=== PATIENT | male | born 1940 | race Caucasian/White ===

== ENCOUNTER → 2016-12-26 | Outpatient (CLI) | payer OTHER | LOC: GIMAGING 16:19 | PROVIDERS: ATTEND Nurse Practitioner Family | DX: M50.30 Other cervical disc degeneration, unspecified cervical region (principal); M47.892 Other spondylosis, cervical region | CPT/HCPCS: 72050-PO ==

== ENCOUNTER 2017-02-27 19:29 | Observation (INO) | payer OTHER ==
--- NOTE | 2017-02-27 21:04 | EDPHY ---
H & P Time Seen by Provider: 02/27/17 20:57 HPI/ROS: Chief complaint. Fever HPI. 77-year-old male fever for 4 days. Seen at urgent care 4 days ago and treated symptomatically. Patient has had fever to 104 degrees. He has been diaphoretic and sweating. He has joint pains. His cough and shortness of breath. Also mid abdominal pain. Denies urinary frequency or dysuria but dark urine. No rash. He lives in an area [facility] where there have been West Nile virus mosquito traps and he says there has been a lot of mosquitos around was unaware being bitten. Also an area where there has been some [place] dog dust. Otherwise no out of the country travel. ROS Constitutional. Fever and chills Eyes. no problems with vision ENT. no sore throat, no nasal drainage Cardiovascular. no chest pain Respiratory. Cough, shortness of breath Abdominal. no abdominal pain, no nausea/vomiting, no diarrhea . no problems urinating MS. no calf pain/swelling, no neck/back pain, no joint pain Skin. no rash Lymph. no swollen glands Neuro. no headache, no dizziness, no difficulty walking or with speech Past Medical/Surgical History: Past medical history is significant for prostate cancer, hypertension, gout Social History: , nonsmoker, no alcohol Smoking Status: Never smoked Physical Exam: General Appearance: Alert well-developed male moderate distress vital signs show temp 37.2degrees, heart rate 130, O2 saturation 1% Eyes: Pupils equal and round no pallor or injection. ENT, Mouth: Mucous membranes are moist. Respiratory: No retractions. Rales right lower lung base Cardiovascular: Regular rate and rhythm. Gastrointestinal: Abdomen is soft and nontender, no masses, bowel sounds normal. Neurological: Awake and alert, sensory and motor exams grossly normal. Skin: Warm and dry, no rashes. Musculoskeletal: Neck is supple nontender. Extremities symmetrical, full range of motion. Psychiatric: Patient is oriented X 3, there is no agitation. Constitutional: Initial Vital Signs Temperature (C) 37.2 C 02/27/17 19:33 Heart Rate 86 02/27/17 19:33 Respiratory Rate 18 02/27/17 19:33 Blood Pressure 137/80 H 02/27/17 19:33 O2 Sat (%) 91 L 02/27/17 19:33 O2 Delivery Mode Room Air Allergies/Adverse Reactions: No Known Allergies Allergy (Verified 02/27/17 19:38) Home Medications: Medication Instructions Recorded Allopurinol [Allopurinol] 300 mg PO DAILY 02/27/17 Beta-Carotene(A) W-C & E/Min 1 tab PO DAILY 02/27/17 [Ocuvite] Cholecalciferol Vit D3 [Vitamin D3 2,000 units PO DAILY 02/27/17 (*)] Losartan Potassium [Cozaar 50 mg 50 mg PO DAILY 02/27/17 (*)] Multivitamins [Multivitamin (*)] 1 each PO DAILY 02/27/17 Solomon-3 Fatty Acids [Fish Oil 1000 2,000 mg PO DAILY 02/27/17 mg (*)] amLODIPine BESYLATE [Amlodipine 10 mg PO DAILY 02/27/17 Besylate] Medical Decision Making - Diagnostics EKG Interpretation: EKG interpreted by me shows atrial fibrillation. Is normal axis. QRS is normal there is no significant ST elevation or depression. Ventricular response is 133 Imaging Results: Imaging Impressions Chest X-Ray 02/27/17 21:24 Impression: Right posteromedial lower lobe infiltrate. Clinical correlation and follow-up are suggested to assure resolution. Procedures: IV normal saline. Septic workup ED Course/Re-evaluation: Re-evaluation patient is stable. The patient, his , and I discussed treatment plan including bleeding recommendation for admission. They expressed understanding and agreement IV Rocephin and azithromycin I consulted and discussed the case with Dr. Rodriguez, hospitalist who agrees to the admission Current ventricular response is 104 Differential Diagnosis: Patient has febrile illness. He has right lower lobe pneumonia that is community-acquired. He is in atrial fibrillation. No evidence for sepsis - Data Points Laboratory Results: Laboratory Results 02/27/17 20:12 02/27/17 20:12 02/27/17 02/27/17 02/27/17 21:36 20:12 20:12 WBC RBC Hgb Hct MCV MCH MCHC RDW Plt Count MPV Neut % (Auto) Lymph % (Auto) [place] % (Auto) Eos % (Auto) Baso % (Auto) Nucleat RBC Rel Count Absolute Neuts (auto) Absolute Lymphs (auto) Absolute Monos (auto) Absolute Eos (auto) Absolute Basos (auto) Absolute Nucleated RBC Immature Gran % Immature Gran # PT 12.9 SEC SEC (12.0-15.0) INR 0.98 (0.83-1.16) APTT 31.0 SEC SEC (23.0-38.0) VBG Lactic Acid 1.3 mmol/L mmol/L (0.7-2.1) Sodium 129 mEq/L L mEq/L (134-144) Potassium 3.8 mEq/L mEq/L (3.5-5.2) Chloride 94 mEq/L L mEq/L (97-110) Carbon Dioxide 23 mEq/l mEq/l (22-31) Anion Gap 12 mEq/L mEq/L (8-16) BUN 9 mg/dL mg/dL (7-23) Creatinine 1.0 mg/dL mg/dL (0.7-1.3) Estimated GFR > 60 Glucose 203 mg/dL H mg/dL (70-100) Calcium 8.6 mg/dL mg/dL (8.5-10.4) Total Bilirubin 1.9 mg/dL H mg/dL (0.1-1.4) Urine Color Urine Appearance Urine pH Ur Specific [place] Urine Protein Urine Ketones Urine Blood Urine Nitrate Urine Bilirubin Urine Urobilinogen Ur Leukocyte Esterase Urine RBC Urine WBC Ur Epithelial Cells Urine Mucus Urine Glucose 02/27/17 02/27/17 20:12 20:05 WBC 12.81 10^3/uL H 10^3/uL (3.80-9.50) RBC 4.11 10^6/uL L 10^6/uL (4.40-6.38) Hgb 13.8 g/dL g/dL (13.7-17.5) Hct 39.2 % L % (40.0-51.0) MCV 95.4 fL fL (81.5-99.8) MCH 33.6 pg pg (27.9-34.1) MCHC 35.2 g/dL g/dL (32.4-36.7) RDW 12.1 % % (11.5-15.2) Plt Count 190 10^3/uL 10^3/uL (150-400) MPV 11.1 fL fL (8.7-11.7) Neut % (Auto) 85.6 % H % (39.3-74.2) Lymph % (Auto) 4.7 % L % (15.0-45.0) [place] % (Auto) 9.1 % % (4.5-13.0) Eos % (Auto) 0.0 % L % (0.6-7.6) Baso % (Auto) 0.3 % % (0.3-1.7) Nucleat RBC Rel Count 0.0 % % (0.0-0.2) Absolute Neuts (auto) 10.96 10^3/uL H 10^3/uL (1.70-6.50) Absolute Lymphs (auto) 0.60 10^3/uL L 10^3/uL (1.00-3.00) Absolute Monos (auto) 1.17 10^3/uL H 10^3/uL (0.30-0.80) Absolute Eos (auto) 0.00 10^3/uL L 10^3/uL (0.03-0.40) Absolute Basos (auto) 0.04 10^3/uL 10^3/uL (0.02-0.10) Absolute Nucleated RBC 0.00 10^3/uL 10^3/uL (0-0.01) Immature Gran % 0.3 % % (0.0-1.1) Immature Gran # 0.04 10^3/uL 10^3/uL (0.00-0.10) PT INR APTT VBG Lactic Acid Sodium Potassium Chloride Carbon Dioxide Anion Gap BUN Creatinine Estimated GFR Glucose Calcium Total Bilirubin Urine Color PALE YELLOW Urine Appearance CLEAR Urine pH 7.0 (5.0-7.5) Ur Specific [place] 1.002 (1.002-1.030) Urine Protein NEGATIVE (NEGATIVE) Urine Ketones NEGATIVE (NEGATIVE) Urine Blood 1+ H (NEGATIVE) Urine Nitrate NEGATIVE (NEGATIVE) Urine Bilirubin NEGATIVE (NEGATIVE) Urine Urobilinogen NEGATIVE EU EU (0.2-1.0) Ur Leukocyte Esterase NEGATIVE (NEGATIVE) Urine RBC NONE SEEN /hpf /hpf (0-3) Urine WBC NONE SEEN /hpf /hpf (0-3) Ur Epithelial Cells NONE SEEN /lpf /lpf (NONE-1+) Urine Mucus TRACE /lpf /lpf (NONE-1+) Urine Glucose NEGATIVE (NEGATIVE) Medications Given: Discontinued Medications Ceftriaxone Sodium/Dextrose (Rocephin 1 Gm (Premix)) 50 mls @ 100 mls/hr IV EDNOW ONE PRN Reason: Protocol Stop: 02/27/17 22:44 Last Admin: 02/27/17 22:39 Dose: 50 mls Departure - Departure Disposition: [facility] Acute Clinical Impression: Atrial fibrillation by electrocardiogram Pneumonia Qualifiers: Pneumonia type: due to unspecified organism Laterality: right Lung location: lower lobe of lung Qualified Code(s): J18.1 - Lobar pneumonia, unspecified organism Condition: Fair
[2017-02-27 21:33] LABS: COLOR PALE YELLOW; LEUKOCYTE ESTERASE,URINE NEGATIVE (NEGATIVE); NITRITE,URINE NEGATIVE (NEGATIVE)
[2017-02-27 21:33] LABS: % IMMATURE GRANULYOCYTES 0.3 % (0.0-1.1); ABSOLUTE IMMATURE GRANULOCYTES 0.04 10^3/uL (0.00-0.10); ADD DIFF? NO; ADD MORPH? NO; ADD SCAN? NO; ATYPICAL LYMPHOCYTE FLAG 0 (0-99); FRAGMENT RBC FLAG 0 (0-99); HEMATOCRIT 39.2 % (40.0-51.0); HEMOGLOBIN 13.8 g/dL (13.7-17.5); LEFT SHIFT FLG 50 (0-99); LIPEMIA HEMOLYSIS FLAG 90 (0-99); MEAN CELL HEMOGLOBIN 33.6 pg (27.9-34.1); MEAN CELL HEMOGLOBIN CONCENTR. 35.2 g/dL (32.4-36.7); MEAN CELL VOLUME 95.4 fL (81.5-99.8); MEAN PLATELET VOLUME 11.1 fL (8.7-11.7); PLATELET CLUMPS FLAG 0 (0-99); PLATELET COUNT 190 10^3/uL (150-400); RED BLOOD CELL COUNT 4.11 10^6/uL (4.40-6.38); RED CELL DISTRIBUTION WIDTH 12.1 % (11.5-15.2)
[2017-02-27 21:37] LABS: MUCUS TRACE /lpf (NONE-1+)
[2017-02-27 21:38] LABS: RBC,URINE NONE SEEN /hpf (0-3); WBC,URINE NONE SEEN /hpf (0-3)
[2017-02-27 21:42] LABS: INR 0.98 (0.83-1.16); PROTIME(PATIENT) 12.9 SEC (12.0-15.0)
[2017-02-27 21:44] LABS: ANION GAP 12 mEq/L (8-16); BILIRUBIN,TOTAL 1.9 mg/dL (0.1-1.4); CALCIUM 8.6 mg/dL (8.5-10.4); CARBON DIOXIDE 23 mEq/l (22-31); CHLORIDE 94 mEq/L (97-110); GLOMERULAR FILTRATION RATE > 60; GLUCOSE 203 mg/dL (70-100); POTASSIUM 3.8 mEq/L (3.5-5.2); SODIUM 129 mEq/L (134-144)
--- NOTE | 2017-02-27 21:57 | CPEKG ---
Heart Rate: 135 RR Interval: 444 QRSD Interval: 94 QT Interval: 324 QTC Interval: 486 QRS Commack: 47 T Wave Commack: 14 EKG Severity - ABNORMAL ECG - EKG Impression: ATRIAL FIBRILLATION EKG Impression: BORDERLINE PROLONGED QT INTERVAL Electronically Signed By: Dameon Cordero 27-Feb-2017 23:39:16
[2017-02-27] MEDS ORDERED: AZITHROMYCIN IV 500 MG in D5W 250 ML IV ONE (22:15)
[2017-02-27] MEDS ORDERED: DILTIAZEM 25 MG/5 ML VIAL IVP SCH ×2 (23:15→23:30)
[2017-02-27] MEDS ORDERED: DILTIAZEM 25 MG/5 ML VIAL IVP ONE (23:18)
[2017-02-27] MEDS ORDERED: HYDROmorphONE/DILAUDID 1 MG/ML SYR IVP PRN (23:25)
[2017-02-27] MEDS ORDERED: oxyCODONE IR 5 MG TAB PO PRN (23:25)
[2017-02-27] MEDS ORDERED: PROMETHAZINE HCL 25 MG/ML INJ IVP PRN (23:25)
[2017-02-27] MEDS ORDERED: ONDANSETRON 4 MG/2 ML VIAL IVP PRN (23:25)
[2017-02-27] MEDS ORDERED: KETOROLAC 30 MG/1 ML SDV IVP PRN (23:25)
[2017-02-27] MEDS ORDERED: ACETAMINOPHEN 325 MG TAB PO PRN (23:25)
[2017-02-27] MEDS ORDERED: DILTIAZEM 125 MG in D5W 125 ML IV SCH (23:30)
[2017-02-27] MEDS ORDERED: NS 1,000 ML IV SCH (23:30)
--- NOTE | 2017-02-28 00:45 | GHP ---
[f rep st] HISTORY AND PHYSICAL DATE OF ADMISSION: 02/27/2017 CHIEF COMPLAINT: Fever. HISTORY: The patient is a 77-year-old male, who has been having severe fever at home, up to 104 for the last 4 days. He has been diaphoretic, and last night, had such severe night sweats, that he so aked through all his bed sheets. He has had a new cough with productive brown sputum and shortness of breath. He also complains of extreme joint pain felt most in his bilateral shoulders and elbows, although there have been no focal changes, such as swelling or warmth at the joints. He has had na usea. He denies any chest pain or palpitations. Upon presentation, he was in normal sinus rhythm and diagnosed with community-acquired pneumonia. Antonietta moore was on a compliance monitor in the emergency room. Subsequently, went into rapid AFib, heart rate up to 150-160, completely asymptomatic. He continues in rapid AFib at this time. PAST MEDICAL HISTORY: 1. Hypertension. 2. Gout. 3. Prostate cancer, status post radical prostatectomy. MEDICATIONS: Please see computer record for full detailed list. ALLERGIES: No known drug allergies. SOCIAL HISTORY: No smoking. Drinks 3 beers per day. Lives with his . REVIEW OF SYSTEMS: Complete review of systems obtained. Review of systems negative regarding const itutional, HEENT, GI, pulmonary, cardiovascular, , hematology, skin, musculoskeletal, endocrine, p sych except for positives as noted in HPI. FAMILY HISTORY: Reviewed, noncontributory to presenting complaint. PHYSICAL EXAMINATION: GENERAL: Well-developed, well-nourished male, in no acute distress. VITAL S IGNS: Temperature is 37.4, pulse 118. I noted his telemetry when I was at bedside to be in a persi stent rapid AFib throughout my visit with him, heart rate up to 150 to 160. Blood pressure 146/98, satting 93% on room air. EYES: Normal conjunctiva. Pupils equal and react light. ENT: Normal ea rs, nose. Hearing intact. Normal lips and teeth. Oropharynx moist. NECK: Trachea midline. No t hyromegaly. Chest normal respiratory effort. LUNGS: Clear to auscultation bilaterally. CARDIOVAS CULAR: Irregularly irregular, tachycardic. No murmur. ABDOMEN: Soft, nontender. No hepatospleno megaly. SKIN: Warm, dry, intact, without rash. MUSCULOSKELETAL: No cyanosis or clubbing. Streng th 5/5 in upper and lower extremities. Both his shoulders and elbows were closely examined. They h ave good range of motion without increased pain. No erythema, warmth, or swelling of the joint. NE UROLOGIC: Cranial nerves intact. Normal sensation to light touch. PSYCHIATRIC: Alert and oriente d x3. Normal affect. Normal judgment. Normal insight. Normal memory. LABORATORY DATA: White count 12.8, hematocrit 39.2, platelets 190. Sodium 129, potassium 3.8, chlo ride 94, bicarb 23, BUN 9, creatinine 1.0, glucose 203. Total bili 1.9. Urinalysis is negative. L actate is 1.9. INR is normal. EKG viewed by me, my personal interpretation is atrial fibrillation with rapid ventricular response. Chest x-ray shows a right lower lobe infiltrate. Case was discussed with Dr. Dameon Cordero. He di agnosed community-acquired pneumonia, started ceftriaxone and azithromycin. ASSESSMENT/PLAN: 1. Right lower lobe pneumonia. This is community acquired. We will continue ceftriaxone and azith romycin. 2. New-onset atrial fibrillation. I suspect he has been having asymptomatic paroxysmal atrial fibr illation more longstanding as he was normal sinus rhythm on presentation and flipped into rapid vent ricular response incidentally on the monitor, without any change in symptoms. Will start him on an IV diltiazem drip and transition it to oral diltiazem in the morning. Will start him on Eliquis. W ill check an echo. 3. Hypertension. I will discontinue his amlodipine as we will be changing his calcium channel bloc ker to diltiazem. This is provided, of course, that his echocardiogram has a normal ejection fracti on. 4. Hyponatremia. I suspect he is hypovolemic. Will hydrate overnight with normal saline and reche ck in the morning. 5. Glucose elevation. I will check a fasting glucose in the morning. Check hemoglobin A1c. 6. Total bilirubin elevation. Will check a full LFT panel in the morning. 7. Code status. Full. 8. Admission status. Will admit to observation as optimistically, he may rapidly improve and be ab le to go home tomorrow. Will reassess tomorrow. 9. Deep vein thrombosis prophylaxis. As discussed above, Eliquis being initiated. /[id number]/MODL
[2017-02-28 04:32] LABS: ADD MORPH? NO; ATYPICAL LYMPHOCYTE FLAG 0 (0-99); FRAGMENT RBC FLAG 0 (0-99); HEMOGLOBIN 12.6 g/dL (13.7-17.5); LIPEMIA HEMOLYSIS FLAG 90 (0-99); MEAN CELL HEMOGLOBIN 33.8 pg (27.9-34.1); MEAN CELL VOLUME 96.5 fL (81.5-99.8); MEAN PLATELET VOLUME 10.8 fL (8.7-11.7); PLATELET CLUMPS FLAG 10 (0-99); PLATELET COUNT 181 10^3/uL (150-400); RED BLOOD CELL COUNT 3.73 10^6/uL (4.40-6.38); RED CELL DISTRIBUTION WIDTH 12.1 % (11.5-15.2)
[2017-02-28 04:33] LABS: ADD DIFF? YES; ADD SCAN? NO; LEFT SHIFT FLG 110 (0-99)
[2017-02-28 05:00] LABS: PLATELET ESTIMATE ADEQUATE (ADEQ)
[2017-02-28 05:02] LABS: ALANINE AMINOTRANSFERASE 29 IU/L (21-72); ALBUMIN 2.7 g/dL (3.5-5.0); ALKALINE PHOSPHATASE 85 IU/L (38-126); ANION GAP 10 mEq/L (8-16); ASPARTATE AMINOTRANSFERASE 16 IU/L (17-59); BILIRUBIN,TOTAL 1.2 mg/dL (0.1-1.4); BILIRUBIN-CONJUGATED 0.4 mg/dL (0.0-0.5); BILIRUBIN-UNCONJUGATED 0.8 mg/dL (0.0-1.1); CALCIUM 7.7 mg/dL (8.5-10.4); CARBON DIOXIDE 23 mEq/l (22-31); CHLORIDE 100 mEq/L (97-110); GLOMERULAR FILTRATION RATE > 60; GLUCOSE 221 mg/dL (70-100); POTASSIUM 3.6 mEq/L (3.5-5.2); SODIUM 133 mEq/L (134-144); TOTAL PROTEIN 4.7 g/dL (6.3-8.2)
[2017-02-28 05:09] LABS: TROPONIN I < 0.012 ng/mL (0.000-0.034)
[2017-02-28] MEDS ORDERED: SIMETHICONE 80 MG TAB CHEW PO PRN (05:32)
[2017-02-28] MEDS ORDERED: AZITHROMYCIN 250 MG TAB PO SCH (09:00)
[2017-02-28] MEDS ORDERED: APIXABAN 5 MG TAB PO SCH (09:00)
[2017-02-28] MEDS ORDERED: ALLOPURINOL 300 MG TAB PO SCH (09:00)
[2017-02-28] MEDS ORDERED: LOSARTAN POTASSIUM 50 MG TAB PO SCH (09:00)
[2017-02-28] MEDS ORDERED: DILTIAZEM CD 120 MG CAP PO SCH (09:00)
[2017-02-28 11:15] VITALS: BP 140/70; PULSE 82; RESP 20; TEMP 98.1
[2017-02-28 11:49] VITALS: O2SAT 86
--- NOTE | 2017-02-28 11:55 | PDHOMEO2F ---
Home Oxygen Face to Face Home Orders: I certify that a physician or a nurse practitioner or physician's entry level administrative assistant has had a [id number] encounter with this patient on the date of this order due to the diagnosis listed, which relates to the primary reason the patient requires home oxygen. Alternative treatments have been tried, or considered, and deemed ineffective. It is anticipated that supplemental oxygen will result in improvement with treatment. Home oxygen qualifying diagnosis: hypoxia Home oxygen secondary diagnosis: pneumonia SpO2 on room air (%): 86 at rest Frequency of home oxygen needed: continuous Home oxygen liters per minute: 2 Home oxygen delivery device: nasal cannula Concentrator: No E-tanks for mobility and back up: Yes If ordering portable O2, is the patient mobile in the home?: No I certify that, based on these findings, the home oxygen is medically necessary for this patient for the following length of time. Length of time home oxygen needed: 1 week
--- NOTE | 2017-02-28 11:58 | HOSPPROG ---
Hospitalist Progress Note Assessment/Plan: #Atrial fibrillation: suspect more chronic. Converted to NSR. DC on Dilt, Eliquis. TTE pending #CAP: change to LQ #Acute hypoxic resp failure: due to CAP #HTN: change Norvasc to Dilt #hypovolemic hyponatremia: improved with IVFs #Diet: regular #DVT ppx: Eliquis #Disp: pending TTE Subjective: no SOB, dizziness or CP Objective: Vital Signs Temp Pulse Resp BP Pulse Ox 36.7 C 82 20 140/70 H 86 L 02/28/17 11:14 02/28/17 11:14 02/28/17 11:14 02/28/17 11:14 02/28/17 11:30 Laboratory Results 02/28/17 04:06 02/28/17 04:06 02/27/17 02/28/17 03/01/17 05:59 05:59 05:59 Intake Total 1400 862 Balance 1400 862 PT 12.9 SEC (12.0-15.0) 02/27/17 20:12 INR 0.98 (0.83-1.16) 02/27/17 20:12 - Physical Exam Constitutional: no apparent distress Eyes: PERRL Ears, Nose, Mouth, Throat: moist mucous membranes Cardiovascular: regular rate and rhythym, no murmur, rub, or gallop, No edema Respiratory: no respiratory distress, other (crackles right mid-lung, base) Gastrointestinal: normoactive bowel sounds, soft, non-tender abdomen Genitourinary: no bladder fullness Skin: warm Musculoskeletal: full muscle strength Neurologic: AAOx3, CN II-XII Intact Psychiatric: interacting appropriately ICD10 Worksheet Patient Problems: Problems Problem Status Onset Atrial fibrillation by electrocardiogram Acute Pneumonia Acute
--- NOTE | 2017-02-28 13:21 | ECHO ---
[id number] + + [address] : : [place] [address] : : [phone] + + Adult Echocardiographic Report + -------+ :Name: SANDY CONTRERAS HStudy Date: 02/28/2017 12:07 PM : : Hospital Admission Number: [id number] Locati on: 214: :: 1940 Gender: Male Height: 69 in : :Age: 77 yrs Race: WH Weight: 165 lb : :Reason For Study: new afib : : BSA: 1.9 meter s2 : :History: No previous : + -------+ MMode/2D Measurements \T\ Calculations IVSd: 0.99 cm LVIDd: 4.5 cm FS: 49.6 % LVOT diam: 2.0 cm LVPWd: 0.91 cm LVIDs: 2.3 cm EDV(Teich): LVOT area: 93.4 ml 3.2 cm2 ESV(Teich): 17.7 ml EF(Teich): 81.1 % LVLd ap4: 7.5 cm SV(MOD-sp4): EDV(MOD-sp4): 54.0 ml 79.0 ml LVLs ap4: 6.1 cm ESV(MOD-sp4): 25.0 ml EF(MOD-sp4): 68.4 % Normal Measurement Values: + + :LVIDd (3.5-5.7cm) IVSd (0.6-1.1cm) LVPWd (0.6-1.1cm) Aortic Root (2.0-3.7cm)Left Atrium (1.5-4.0cm): :LV Vol(d) (76-115ml) LV Vol(s) (29-48ml) Ejec Fraction (50-65%)PV Harsha (0.6- 1.2m/s) TV Harsha (0.4-1.0m/s) : :MV E Harsha (0.8-1.0m/s)MV A Harsha (0.3-1.0m/s)LVOT Harsha (0.7-1.2m/s) Asc Ao Harsha ( 0.9-1.8m/s) : + + Doppler Measurements \T\ Calculations MV E max harsha: MV V2 mean: Ao mean PG: LV V1 max: 81.9 cm/sec 67.7 cm/sec 3.4 mmHg 133.3 cm/sec MV A max harsha: MV mean PG: Ao V2 mean: LV V1 max P.4 cm/sec 2.0 mmHg 88.1 cm/sec 7.1 mmHg MV E/A: 0.96 MV V2 VTI: 31.5 cmAo V2 VTI: 22.6 cm LV V1 mean PG: MV dec time: MVA(VTI): 2.5 cm2 YULISA(I,D): 3.4 cm2 3.8 mmHg 0.25 sec LV V1 mean: 92.3 cm/sec LV V1 VTI: 24.1 cm SV(LVOT): 77.4 ml RAP systole: 10.0 mmHg Left Ventricle The left ventricle is normal in size and function. There is normal left ventricular wall thickness. Ejection Fraction = 65-70%. No regional wall motion abnormalities noted. Right Ventricle The right ventricle is normal in size and function. Atria The left atrial size is normal. Right atrial size is normal. Mitral Valve The mitral valve is normal in structure and function. There is no mitral valve stenosis. There is trace mitral regurgitation. Tricuspid Valve The tricuspid valve is normal in structure and function. There is no tricuspid stenosis. There is trace tricuspid regurgitation. Aortic Valve The aortic valve is normal in structure and function. There is no aortic stenosis. There is no aortic insufficiency. Pulmonic Valve The pulmonic valve is not well visualized. There is no pulmonic valvular regurgitation. Great Vessels The aortic root is normal size. Pericardium/Pleural There is a fat pad seen. There is no pericardial effusion. Conclusion A complete two-dimensional transthoracic echocardiogram was performed (2D, M-mode, Doppler and color flow Doppler). The left ventricle is normal in size and function. Ejection Fraction = 65-70%. There is trace mitral regurgitation. There is trace tricuspid regurgitation. The aortic valve is normal in structure and function. No prior echo Final Reading Physician: Dr Mari Quiroz electronically signed on 02/28/2017 01:20 PM Ordering Physician: Orly Hughes Performed By: Spring Fleming
--- NOTE | 2017-02-28 15:02 | GDS ---
[f rep st] DISCHARGE SUMMARY DISCHARGE DIAGNOSES: 1. New onset atrial fibrillation. 2. Right lower lobe pneumonia, community acquired. 3. Hypertension. 4. Hypovolemic, hyponatremia. 5. Mild hyperbilirubinemia. HISTORY OF PRESENT ILLNESS: A 77-year-old male with history of hypertension, who has been having severe fever at home up to 104 for the last 4 days. He complains of sweats, soaked through all of his bed sheets. He has had a productive cough with brown sputum and shortness of breath. He has also felt joint pain through his bilateral shoulders and elbows. He denies any chest pain or palpitations. Upon presentation he was in normal sinus rhythm. Diagnosed with pneumonia. He was on a color television console monitor in the emergency room, and went into rapid atrial fibrillation up to 160s, completely asymptomatic. HOSPITAL COURSE BY PROBLEM: 1. New onset atrial fibrillation: Likely triggered by acute infection. He has converted to normal sinus rhythm with IV diltiazem, and has been converted to p.o. form. He was started on Eliquis. Echo showed normal EF. No regional wall motion abnormalities. Trace MR, trace TR. He should establish care with cardiology. Follow up in their clinic. TSH was within normal. 2. Community-acquired pneumonia: The patient was treated with IV ceftriaxone and azithromycin here. We will transition to Levaquin for a total of 7 days. 3. Acute hypoxic respiratory failure: Secondary to acute pneumonia. He will be discharged on home oxygen. Troponin and EKG were negative for ischemia. 4. Hypertension: Resume home medications. 5. Leukocytosis: Secondary to acute infection. He remains afebrile with negative blood cultures. 6. Hypovolemic, hyponatremia: This improved with IV hydration. 7. Glucose intolerance: His glucose was greater than 200 here. A1c is pending. 8. Hyperbilirubinemia: Elevated at 1.9 on admission, now normalized with hydration. DISPOSITION: Patient is stable for discharge home with on oxygen. FOLLOWUP: 1. PCP to evaluate oxygen needs. 2. Labs pending, A1c. 3. Establish care with [facility]. Time spent on discharge 40 min counseling patient and on medications, follow up. /[id number]/MODL MTDD
[2017-03-01 02:28] LABS: HEMOGLOBIN A1C 6.7 % (4.0-6.0)
== END 2017-02-28 17:25 | disposition home or self-care (01) ==
LOC: INTOOBSV 22:20 → F2W 23:57
PROVIDERS: ADMIT Internal Medicine; ATTEND Internal Medicine
DX: I48.91 Unspecified atrial fibrillation (principal); J18.1 Lobar pneumonia, unspecified organism; I10 Essential (primary) hypertension; E87.1 Hypo-osmolality and hyponatremia; Z85.46 Personal history of malignant neoplasm of prostate
CPT/HCPCS: 71020; 93005; 93306; 97165; G0378; G8987; G8988; G8989; J0456; J0696; 96365

== ENCOUNTER → 2017-03-19 | Outpatient (CLI) | payer OTHER | LOC: GIMAGING 14:00 → EDSTATUS 14:01 | PROVIDERS: ATTEND Nurse Practitioner Family | DX: J18.9 Pneumonia, unspecified organism (principal) | CPT/HCPCS: 71020-PO ==

== ENCOUNTER → 2017-06-16 | Outpatient (CLI) | payer OTHER | LOC: GIMAGING 14:17 | PROVIDERS: ATTEND Family Medicine | DX: J45.909 Unspecified asthma, uncomplicated (principal) | CPT/HCPCS: 71020-PO ==

== ENCOUNTER → 2017-07-27 | Outpatient (CLI) | payer OTHER | LOC: BHLMT 11:00 | PROVIDERS: ATTEND Internal Medicine Cardiovascular Disease | DX: R94.31 Abnormal electrocardiogram [ECG] [EKG] (principal); I10 Essential (primary) hypertension | CPT/HCPCS: 93017-PO ==

== ENCOUNTER → 2018-03-30 | Outpatient (CLI) | payer OTHER | LOC: GIMAGING 14:12 | PROVIDERS: ATTEND Family Medicine | DX: M25.511 Pain in right shoulder (principal); R93.7 Abnormal findings on diagnostic imaging of other parts of musculoskeletal system | CPT/HCPCS: 73030-PO ==

== ENCOUNTER → 2018-04-14 | Outpatient (CLI) | payer OTHER | LOC: FIMAGING 09:51 | PROVIDERS: ATTEND Family Medicine | DX: M75.121 Complete rotator cuff tear or rupture of right shoulder, not specified as traumatic (principal); M24.811 Other specific joint derangements of right shoulder, not elsewhere classified ==